=== PATIENT | female | born 1990 | race Caucasian/White ===

== ENCOUNTER 2018-06-07 13:27 | Emergency (ER) | payer BC, OTHER ==
--- NOTE | 2018-06-07 14:11 | EDM.PDOC ---
<Dayna Louis - Last Filed: 06/07/18 15:47> ED HPI GENERAL MEDICAL PROBLEM - General Chief Complaint: Upper Extremity Injury/Pain Stated Complaint: POSS. BLOOD CLOT IN L ARM Time Seen by Provider: 06/07/18 13:45 Source of Information: Reports: Patient History Limitations: Reports: No Limitations - History of Present Illness INITIAL COMMENTS - FREE TEXT/NARRATIVE: Patient was referred to the ED today by her OBGYN, Dr. Urbina, for complaint of left arm swelling. Patient is 36 weeks with a h/o factor V Leiden currently on daily Lovenox injections. Patient has had intermittent shooting arm pain from her shoulder to her fingers for three weeks, however today she woke up with hand and wrist swelling for the first time. Patient wears carpal tunnel braces at night for numbness in her bilateral thumbs, index, and long fingers. This morning her fingers were swollen and the brace had left indentations in her skin. The swelling has now subsided. 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 At this time patient denies cough, SOB, chest pain, arm swelling or pain, leg swelling or pain. Onset: Today Duration: Improving Location: Reports: Upper Extremity, Left Quality: Reports: Other (shooting) Improves with: Reports: None Worsens with: Reports: None Context: Reports: Other () Associated Symptoms: Denies: Chest Pain, Fever/Chills, Headaches, Shortness of Breath, Syncope Left Arm Pain Score (Numeric/FACES): 1 - Related Data Allergies Allergy/AdvReac Type Severity Reaction Status Date / Time No Known Allergies Allergy Verified 06/07/18 13:33 Home Meds: Home Meds Enoxaparin Sodium 30 mg SQ DAILY 06/07/18 [History] Iron Tabs. 1 tab PO BID 06/07/18 [History] Vit No.129/Iron/FA [ One Daily Tablet] 1 tab PO DAILY 06/07/18 [History] Past Medical History [employer] History: Reports: Hematologic History: Reports: Other (See Below) Other Hematologic History: factor V Social & Family History - Tobacco Use Smoking Status *Q: Never Smoker - Recreational Drug Use Recreational Drug Use: No Review of Systems - Review of Systems Review Of Systems: See Below Constitutional: Reports: No Symptoms Respiratory: Denies: Shortness of Breath, Wheezing, Cough, Hemoptysis Cardiovascular: Denies: Chest Pain, Edema, Lightheadedness, Palpitations, Syncope GI/Abdominal: Denies: Abdominal Pain Musculoskeletal: Denies: Arm Pain, Leg Pain Neurological: Denies: Confusion, Dizziness, Headache, Numbness, Paresthesia, Syncope, Tingling, Trouble Speaking, Difficulty Walking, Change in Speech, Gait Disturbance ED EXAM, GENERAL - Physical Exam Exam: See Below Exam Limited By: No Limitations General Appearance: Alert, WD/WN, No Apparent Distress Respiratory/Chest: No Respiratory Distress, Lungs Clear, No Accessory Muscle Use Cardiovascular: Normal Peripheral Pulses, Regular Rate, Rhythm, No Edema Peripheral Pulses: 2+: Radial (L), Radial (R) Extremities: Normal Inspection, Normal Range of Motion, Non-Tender, No Pedal Edema, Normal Capillary Refill. No: Joint Swelling, Arm Pain, Garrick's Sign, Leg Pain, Increased Warmth, Pallor, Redness Neurological: Alert, Oriented, Normal Cognition, Normal Gait Skin Exam: Warm, Dry, Intact, Normal Color, No Rash Course - Vital Signs Last Recorded V/S: Last Vital Signs Temp Pulse 72 06/07/18 13:35 Resp 15 06/07/18 13:35 BP 115/78 06/07/18 13:35 Pulse Ox 100 06/07/18 13:35 - Orders/Labs/Meds Labs: Laboratory Tests 06/07/18 06/07/18 06/07/18 Range/Units 14:15 14:15 14:15 WBC 8.70 (3.98-10.04) K/mm3 RBC 3.82 L (3.98-5.22) M/mm3 Hgb 11.5 (11.2-15.7) gm/L Hct 34.4 (34.1-44.9) % MCV 90.1 (79.4-94.8) fl MCH 30.1 (25.6-32.2) pg MCHC 33.4 (32.2-35.5) g/dl RDW Std Deviation 43.1 (36.4-46.3) fL Plt Count 175 L (182-369) K/mm3 MPV 11.1 (9.4-12.3) fl Neut % (Auto) 69.0 (34.0-71.1) % Lymph % (Auto) 21.7 (19.3-51.7) % [place] % (Auto) 9.0 (4.7-12.5) % Eos % (Auto) 0.1 L (0.7-5.8) Baso % (Auto) 0.1 (0.1-1.2) % Neut # (Auto) 6.00 (1.56-6.13) K/mm3 Lymph # (Auto) 1.89 (1.18-3.74) K/mm3 [place] # (Auto) 0.78 H (0.24-0.36) K/mm3 Eos # (Auto) 0.01 L (0.04-0.36) K/mm3 Baso # (Auto) 0.01 (0.01-0.08) K/mm3 PT 9.6 (9.5-12.1) SECONDS INR < 0.93 APTT 26 (24-31) SECONDS Sodium 140 (136-145) mEq/L Potassium 3.9 (3.5-5.1) mEq/L Chloride 107 (98-107) mEq/L Carbon Dioxide 21 (21-32) mEq/L Anion Gap 15.9 H (5-15) BUN 6 L (7-18) mg/dL Creatinine 0.6 (0.55-1.02) mg/dL Est Cr Clr Drug Dosing 116.50 mL/min Estimated GFR (MDRD) > 60 (>60) mL/min BUN/Creatinine Ratio 10.0 L (14-18) Glucose 71 L (74-106) mg/dL Calcium 8.8 (8.5-10.1) mg/dL Total Bilirubin 0.1 L (0.2-1.0) mg/dL AST 19 (15-37) U/L ALT 16 (14-59) U/L Alkaline Phosphatase 133 H (46-116) U/L Total Protein 6.7 (6.4-8.2) g/dl Albumin 2.5 L (3.4-5.0) g/dl Globulin 4.2 gm/dL Albumin/Globulin Ratio 0.6 L (1-2) Departure - Departure Time of Disposition: 15:48 Disposition: Home, Self-Care 01 Condition: Good Clinical Impression: Arm swelling - Discharge Information *PRESCRIPTION DRUG MONITORING PROGRAM REVIEWED*: Not Applicable *COPY OF PRESCRIPTION DRUG MONITORING REPORT IN PATIENT SOILA: Not Applicable Referrals: Piotr Urbina MD [Primary Care Provider] - Forms: ED Department Discharge Additional Instructions: The venous doppler ultrasound of your arm indicates that you do not have a clot. Your labs are within normal limits and do not indicate that you have HELLP syndrome. Follow up with Dr. Urbina as needed. Please return to the ED if you have worsening of your symptoms. <Gabriella Smith - Last Filed: 06/10/18 11:04> ED HPI GENERAL MEDICAL PROBLEM - History of Present Illness INITIAL COMMENTS - FREE TEXT/NARRATIVE: I have seen the patient and agree with the HPI, ROS and PE as documented by MATILDA Mariano. Patient reports she was started on lovenox injections by her Ob once she found out she was . Review of Systems - Review of Systems Musculoskeletal: Reports: Other (swelling to the left arm this monring, currently mostly resolved. ) ED EXAM, GENERAL - Physical Exam Exam: See Below Course - Radiology Interpretation Free Text/Narrative:: Left upper extremity venous ultrasound: Duplex and color flow imaging was obtained of the left internal jugular, subclavian, axillary, brachial, basilic, cephalic, radial and ulnar veins. Normal compression and phasic flow is seen. Axillary veins through forearm veins show normal augmentation. Impression: 1. No evidence of venous thrombosis within the left upper extremity. - Re-Assessments/Exams Free Text/Narrative Re-Assessment/Exam: 06/07/18 15:42 I have seen the patient and agree with the HPI, ROS and PE as documented by MATILDA Mariano. I have reviewed t he labs and imaging with the patient. Recommend follow-up with Ob as planned. Discharge instructions as documented.
--- NOTE | 2018-06-07 16:11 | US ---
Left upper extremity venous ultrasound: Duplex and color flow imaging was obtained of the left internal jugular, subclavian, axillary, brachial, basilic, cephalic, radial and ulnar veins. Normal compression and phasic flow is seen. Axillary veins through forearm veins show normal augmentation. Impression: 1. No evidence of venous thrombosis within the left upper extremity. Diagnostic code #1
== END 2018-06-07 16:15 | disposition home or self-care (01) ==
LOC: JD.ED 13:27
DX: O99.89 Other specified diseases and conditions complicating pregnancy, childbirth and the puerperium (principal); M79.89 Other specified soft tissue disorders; Z3A.36 36 weeks gestation of pregnancy
CPT/HCPCS: 36415; 80053; 85025; 85610; 85730; 93971-26-LT; 93971-LT; 99284-25